=== PATIENT | female | born 1940 | race Caucasian/White ===

== ENCOUNTER 2017-04-22 04:46 | Emergency (ER) | payer MEDICARE, OTHER ==
[2017-04-22] VITALS (7 sets, daily range): BP systolic 105–133; BP diastolic 61–87; PULSE 110–121; RESP 22–28; O2SAT 92–97
[~2017-04-22] VITALS: Ht 160 cm; Wt 75.0 kg
[~2017-04-22 04:46] MED LIST: ACET-2404 PO; ADV100INH IH; ATRINH INH; CHOL200047 PO; CLOB15CR2 TP; CYAN500 PO; DESV50TA PO; ESTR0.5T PO; FLUC150T48 PO; FOLI1TAB18 PO; IPRA42SP NS; LEVO750T9 PO; LEVO75TA4 PO; MAG770OR3 PO; MULT-895 PO; NAM10 PO; OMEP-113 PO; PRE10 PO; ZLP5T PO
[2017-04-22] MEDS ORDERED: Albuterol-Ipratropium 3 mL Inhalation Solution ONE (05:10)
[2017-04-22 05:21] LABS: BASOPHILS % (AUTO) 0.2 % (0-3); EOSINOPHILS % (AUTO) 2.2 % (0-5); MONOCYTES % (AUTO) 12.8 % (4-12); Mean Corpuscular Hemoglobin 28.9 pg (27.0-35.0); Mean Corpuscular Volume 90.2 fL (81-100); NEUTROPHILS % (AUTO) 75.5 % (40-74); Platelet Count 190 bil/L (150-400)
[2017-04-22 05:32] LABS: TROPONIN T 0.01 ug/L (0.0-0.011)
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
[2017-04-22] MEDS ORDERED: MethylprednisoLONE Sodium Succinate 62.5 mg/mL 2 mL Inj IVPUSH ONE (06:20)
[2017-04-22] MEDS ORDERED: levoFLOXacin Inj 750 MG in IV Premix 1 EACH IV ONE (06:20)
[2017-04-22] MEDS ORDERED: PRE10 PO (07:39)
[2017-04-22] MEDS ORDERED: ACET-171 PO (07:39)
[2017-04-22] MEDS ORDERED: MAGN400T39 PO (07:43)
[2017-04-22] MEDS ORDERED: ESTR10TA VG (07:43)
[2017-04-22] MEDS ORDERED: GLUC100016 PO (07:46)
[2017-04-22] MEDS ORDERED: CARB1DRO18 OP (07:46)
[2017-04-22] MEDS ORDERED: BENZ200C44 PO (07:49)
[2017-04-22] MEDS ORDERED: GING550C3 PO (07:49)
[2017-04-22] MEDS ORDERED: PRE20 PO ×2 (07:51→09:27)
[2017-04-22] MEDS ORDERED: LEVO750T39 PO (07:51)
[2017-04-22] MEDS ORDERED: ZLP5T PO (08:23)
[2017-04-22 08:30] LABS: APPEARANCE,URINE SLIGHTLY CLOUDY (CLEAR,HAZY); COLOR,URINE STRAW (YELLOW); OCCULT BLOOD,URINE SMALL (NEGATIVE); PH,URINE 8.5 (5.0-8.0); UROBILINOGEN,URINE NORMAL (NORMAL)
--- NOTE | 2017-04-22 08:43 | DRSVH ---
PROCEDURE: X-RAY CHEST ONE VIEW, PORTABLE ([id number]) INDICATIONS: SHORT OF BREATH TECHNIQUE: One view of the chest was acquired. COMPARISON: [facility], CR, XR CHEST 2VW, 11/27/2016, 14:24. [facility], C R, CHEST 2VW, 02/08/2015, 15:44. FINDINGS: Surgical changes and devices: None. Lungs and pleura: Subtle/patchy areas of minimal air space disease are seen within the right lung and potentially within the left infrahilar region. No lobar consolidation, effusion, or pneumothorax is evident. Mediastinum: Mediastinal contours appear normal. Heart size is normal. There is aortic atheroscler osis. Bones and chest wall: No suspicious bony lesions. Age-appropriate degenerative changes of the image d spine are present. Overlying soft tissues appear unremarkable. IMPRESSION: Subtle developing airspace disease within the right lung and potentially the left lung is suspicious for pneumonia. However, focal areas of atelectasis or unusual presentation for pulmonary edema may also have this appearance. Please correlate clinically. Dictated by: Heriberto Fuller M.D. on 04/22/2017 at 8:40 Approved by: Heriberto Fuller M.D. on 04/22/2017 at 8:42
[2017-04-23] MEDS ORDERED: MULT-1065 PO (15:39)
[2017-04-23] MEDS ORDERED: IPRA15SP NS (15:41)
[2017-04-23] MEDS ORDERED: SYMINH INHALATION (15:46)
[2017-04-23] MEDS ORDERED: NYST1000 PO (15:46)
== END 2017-04-22 09:33 | disposition home or self-care (01) ==
LOC: SED 04:46
DX: J44.0 Chronic obstructive pulmonary disease with (acute) lower respiratory infection (principal); E03.9 Hypothyroidism, unspecified; Z87.891 Personal history of nicotine dependence; Z79.899 Other long term (current) drug therapy; Z90.710 Acquired absence of both cervix and uterus; Z91.041 Radiographic dye allergy status; Z88.1 Allergy status to other antibiotic agents; Z88.8 Allergy status to other drugs, medicaments and biological substances
CPT/HCPCS: 71010; 80053; 81000; 83605; 83880; 84484; 85025; 87040; 93005; 94664; 96365; 96366; 96375; 99285; J1956; J2930; J7620

== ENCOUNTER 2017-04-23 12:10 | Inpatient (IN) | payer MEDICARE, OTHER ==
[~2017-04-23] VITALS: Ht 160 cm; Wt 77.1 kg
[2017-04-23] VITALS (9 sets, daily range): BP systolic 125–156; BP diastolic 64–82; PULSE 101–143; RESP 20–39; O2SAT 91–97
[~2017-04-23 12:10] MED LIST changes: +ACET-171 PO; -ACET-2404 PO; -ADV100INH IH; +BENZ200C44 PO; +CARB1DRO18 OP; +Doxycycline Inj 100 MG in Dextrose 5% Minibag Plus 100 ML IV SCH; +ESTR10TA VG; -FLUC150T48 PO; +GING550C3 PO; +GLUC100016 PO; +LEVO750T39 PO; -LEVO750T9 PO; -MAG770OR3 PO; +MAGN400T39 PO; -OMEP-113 PO; +PRE20 PO
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
[2017-04-23] MEDS ORDERED: MethylprednisoLONE Sodium Succinate 62.5 mg/mL 2 mL Inj IVPUSH ONE (12:45)
[2017-04-23] MEDS ORDERED: Albuterol-Ipratropium 3 mL Inhalation Solution NEB ONE (12:45)
[2017-04-23] MEDS ORDERED: Pantoprazole 4 mg/mL 10 mL Inj IVPUSH ONE (12:45)
[2017-04-23 12:54] LABS: BASOPHILS % (AUTO) 0.1 % (0-3); EOSINOPHILS % (AUTO) 0 % (0-5); MONOCYTES % (AUTO) 11.9 % (4-12); Mean Corpuscular Hemoglobin 29.1 pg (27.0-35.0); Mean Corpuscular Volume 88.6 fL (81-100); NEUTROPHILS % (AUTO) 84.7 % (40-74); Platelet Count 209 bil/L (150-400)
[2017-04-23 13:06] LABS: TROPONIN T < 0.010 ug/L (0.0-0.011)
--- NOTE | 2017-04-23 13:19 | DRSVH ---
PROCEDURE: X-RAY CHEST ONE VIEW, PORTABLE ([id number]) INDICATIONS: 76 year-old female with worsening shortness of breath and emphysema. TECHNIQUE: One view of the chest was acquired. COMPARISON: [facility], CR, XR CHEST 1VW (PORTABLE), 04/22/2017, 5:19. [facility], CR, XR CHEST 2VW, 11/27/2016, 14:24. Outside Film, CR, XR CHEST 2V AP/PA AND LAT, 05/22/2016, 13:18. FINDINGS: Surgical changes and devices: None. Lungs and pleura: No pleural effusions or pneumothorax. Lungs are clear, except for subtle air spac e opacity just superior to the right minor fissure. Mediastinum: Mediastinal contours appear normal. Heart size is normal. There is aortic atheroscler osis. Bones and chest wall: No suspicious bony lesions. Overlying soft tissues appear unremarkable. IMPRESSION: Findings suspicious for early right upper lobe pneumonia. Dictated by: Roberto Lipscomb M.D. on 04/23/2017 at 12:16 Approved by: Roberto Lipscomb M.D. on 04/23/2017 at 12:18
[2017-04-23] MEDS ORDERED: Piperacillin-Tazo 3.375 Gm Inj 3.375 GM in Dextrose 5% Minibag Plus 50 ML IV ONE (13:40)
[2017-04-23] MEDS ORDERED: Albuterol 0.5% (5mg/mL) 20 mL Inhalation Solution NEB ONE (13:40)
[2017-04-23] MEDS ORDERED: Vancomycin Dose per Pharmacist XX SCH (13:40)
[2017-04-23] MEDS ORDERED: Vancomycin Inj 1,500 MG in 0.9% Sodium Chloride 500 ML IV ONE (13:50)
[2017-04-23] MEDS ORDERED: LidocaineVisc 2%:Antacid 1:1 10 mL Syringe PO ONE (14:40)
[2017-04-23 14:45] LABS: Magnesium 1.9 mg/dL (1.6-2.6); Phosphorus 3.4 mg/dL (2.5-4.9)
--- NOTE | 2017-04-23 15:17 | PCM.HPMED ---
Subjective Date of Service Apr 23, 2017 Primary Provider: Admitting Physician: Devin Villanueva MD Primary Care Physician: Prasad Catherine MD Attending Physician: Devin Villanueva MD Admit Status: From the Emergency Department Chief Complaint: Shortness of breath History of Present Illness: This is a 76-year-old female with past medical history significant for COPD on continuous 1.5 L of oxygen per day who presents with shortness of breath. The patient states that she was in her normal state of health until 2 weeks ago when she developed a upper respiratory tract infection. The upper respiratory tract infection included productive cough with increased sputum production that is yellow, nasal congestion, and sore throat. The symptoms have been progressively worsening. Over the last 48 hours she developed worsening shortness of breath that has required an increase in her home oxygen use. She also admits to chest pressure that is nonradiating and present at rest. She also developed fevers and chills with a tmax of 100.4f measured at home orally. She has no reported sick contacts. She also states that she has had worsening pain over the last several days at a costovertebral angles (left > right) that is accompanied by decreased urinary frequency. The patient states that she has decreased appetite and decreased fluid intake as well. The patient denies any diaphoresis, nausea, vomiting, dysuria, hematuria, diarrhea. In the ER on 04/22/2017 she was provided with a dose of Levaquin and methylprednisolone. In the emergency department initial vital signs were temperature 37.0, pulse 143 , respiratory rate 39, blood pressure 156/78, satting at 91% on 4 L by nasal cannula. She later required high flow oxygen. Initial laboratory results included WBC 20.2 with left shift, hemoglobin 15.3, hematocrit 46.5, platelets 209. BUN 16, creatinine 0.79, glucose 126. Troponin less than 0.010. Chest x- ray showed findings suspicious for early right upper lobe pneumonia. EKG showed sinus tachycardia with rate of 125. Qtc was prolonged at 569. Blood cultures are pending. In the emergency department patient was given duo nebs, methylprednisolone 125 mg once, and vancomycin. Review of Systems: A comprehensive review of systems was conducted with the patient and found to be negative except as above in the History of Present Illness. Allergies Coded Allergies: Iodinated Contrast- Oral and IV Dye (Verified Allergy, Severe, severe upper body rash, 10/27/14) amoxicillin (Verified Adverse Reaction, Unknown, 10/27/14) cephalexin (Verified Adverse Reaction, Unknown, 10/27/14) clavulanic acid (Verified Adverse Reaction, Unknown, 10/27/14) naproxen (Verified Adverse Reaction, Unknown, "zoned me out", 06/03/14) Home Medications acetaminophen ER 650 mg tablet,extended release take 2 tablet by oral route every 8 hours as needed swallowing whole with water. Do not break, crush, dissolve and/or chew. Atrovent HFA 17 mcg/actuation aerosol inhaler inhale 2 puff by inhalation route 1 to 2 times every day BENZONATATE CAPS 200MG TAKE 1 CAPSULE THREE TIMES A DAY NEEDED Centrum Silver Ultra Women's tablet clobetasol 0.05 % topical cream apply by topical route 2 times every day a thin layer to the affected area(s) desvenlafaxine ER 50 mg tablet,extended release 24 hour take 1 tablet by oral route every day at approximately the same time each day DIFLUCAN 150MG TABLET TAKE 1 TABLET BY MOUTH ONE TIME DOSE - MAY REPEAT INSTRUCTED estradiol 0.5 mg tablet take 1 tablet by oral route every day folic acid 1 mg tablet take 1 tablet by oral route every day Destini Extract Takes 2 550mg capsules daily with honey & vinegar glucosamine sulfate 1,000 mg capsule 1 tab Po daily ipratropium bromide 0.06 % nasal spray spray 2 spray by intranasal route 3 times every day in each nostril levothyroxine 75 mcg tablet take 1 tablet by oral route every day for thyroid. magnesium oxide 400 mg tablet Namenda 10 mg tablet take 1 tablet by oral route every day for memory nystatin 100,000 unit/mL oral suspension take 5 milliliter by oral route 4 times every day Oxygen - Refresh Optive Advanced 0.5 %-1 %-0.5 % eye drops Use as needed for dryness, irritation Symbicort 160 mcg-4.5 mcg/actuation HFA aerosol inhaler inhale 1 puff by INHALATION route 2 times every day morning and evening trospium ER 60 mg capsule,extended release 24 hr take 1 capsule by oral route every day on an empty stomach 1 hour before meal(s) Vagifem 10 mcg vaginal tablet INSERT 1 TABLET BY VAGINAL ROUTE EVERY WEEK Vitamin B-12 1,000 mcg tablet Vitamin D3 2,000 unit capsule zolpidem 5 mg tablet take 1 (5MG) by oral route every day at bedtime PMH COPD on continuous 1.5 L oxygen at home Mild dementia Urinary incontinence History of UTIs GERD Depression/anxiety Hypothyroidism Surgical History Total hysterectomy Cataract extraction Carpal tunnel release Family History Mother of emphysema. Father of stomach cancer. Brother of lung cancer. Sister had coronary artery disease. Social History Hx Alcohol Use: Yes (on occas) Hx Substance Use: No Hx Tobacco Use: No Smoking Status: Former Smoker (quit in 2000.) Exam Vital Signs Vital Sign - Last Date Time Temp Pulse Resp B/P Pulse Ox O2 Delivery O2 Flow Rate FiO2 04/23/17 14:11 140 31 125/64 97 BiPAP 04/23/17 13:08 4 04/23/17 12:23 37.0 Exam General: Patient laying in hospital bed, difficulty speaking due to shortness of breath, appropriately interactive HEENT: Normocephalic, atraumatic. External ears without defect. Pupils equal, round, and reactive to light and accommodation. Anicteric sclerae, moist conjunctivae, and no lid lag. Oropharynx free of erythema and cobble stoning with moist mucosa. Neck: Supple with full range of motion. No jugular venous distension. No bruits. No lymphadenopathy or thyromegaly. Cardiovascular: Regular rate and rhythm with no murmurs, rubs, or gallops appreciated Pulmonary: Wheezing and rhonchi. Tachypneic. Abdomen: Bowel tones present. Soft, nontender, nondistended. No hepatosplenomegaly or masses appreciated. Extremities: No clubbing, cyanosis, edema, or lymphadenopathy appreciated. Skin: Normal temperature, turgor, and texture; no rash, ulcers, or subcutaneous nodules appreciated. Neurological: Cranial nerves grossly intact. Normal muscle strength, tone, and bulk. Reflexes, coordination, and sensory function within normal limits. No known gait impairment. Psychiatric: Normal mood and affect. Alert and oriented to person, place, and time. Lab and Diagnostics Result Diagram: 04/23/17 1230 04/23/17 1230 X-Rays, CTs and MRIs Chest x-ray 04/23/2017: IMPRESSION: Findings suspicious for early right upper lobe pneumonia. Dictated by: Roberto Lipscomb M.D. on 04/23/2017 at 12:16 Assessment & Plan This is a 76-year-old female with past medical history significant for COPD on continuous oxygen 1.5L at home who presents with shortness of breath. This is likely a COPD exacerbation and possibly community-acquired pneumonia. The differential includes myocardial infarction, pulmonary embolism, heart failure. COPD exacerbation, present on admission, ongoing: -ABG: pH 7.461, PCO2 35.7, pO2 66.9, HCO3 25.4. -Patient received methylprednisolone 125 mg in the ED. -Continue Methylprednisolone 60mg q8h. -She received duo nebs with some improvement. Will continue duonebs q4h. -She is currently on high flow oxygen and states she is improving. Community acquired pneumonia, present on admission, ongoing: -Patient has increased cough, has been febrile, with chest x-ray showing findings suspicious of early right upper lobe pneumonia. -Due to severity of exacerbation will continue antibiotics: Doxycycline. -Viral pcr pending, legionella urine ag, strep pneumo ag, blood cultures, sputum culture pending. -Lactic acid 2. Prolonged qtc, present on admission, ongoing: -Qtc on admission 569. -Hold qtc prolonging meds. Chest pressure, present on admission, ongoing: -Trend troponin. -Patient on telemetry. Hypothyroidism, present on admission, ongoing: -TSH, ft4 pending. -Continue home meds. Depression/anxiety -Continue home meds. Patient is admitted under inpatient status with expected length of stay greater than 2 midnights due to severity of presenting symptoms, risk of adverse event, and complexity of treatment plan. Attending Statement Please note that the patient has chronic respiratory failure, as evidenced by notation of chronic 1.5 L oxygen use at home. The patient was seen and examined together with Dr. Real on 04/23/2017 and I agree with the history, exam and plan as outlined in the note above. . Enrique Real DO Apr 23, 2017 15:17 Devin Villanueva MD Apr 24, 2017 07:03
[2017-04-23] MEDS ORDERED: Polyethylene Glycol (PEG) 17 Gm Powder PO PRN (15:35)
[2017-04-23] MEDS ORDERED: Alum-Mag Hydrox-Simeth 30 mL Suspension PO PRN (15:35)
--- NOTE | 2017-04-23 15:37 | ABG ---
DateTimeAnalyzed 15:24:01 -_ pH ____7.461 - 7.350 7.450 pCO2 ___35.7__ -mmHg 35.0 45.0 pO2 ___66.9__ -mmHg 70.0 100 HCO3- ___25.4__ -mmol/L 22.0 26.0 ABE ____1.6__ -mmol/L -2.0 2.0 tHb ___13.6__ -g/dL 12.0 18.0 O2Hb ___93.8__ -% 95.0 COHb ____1.1__ -% 1.5 MetHb ____0.1__ -% 0.4 1.5 sO2 ___94.9__ -% FIO2 ___21.0__ -% Drawn By RC - Date/Time Notified____ 15:37:00 -_ Spontaneous_RR 25 -b/min Liter_Flow ___25.00_ -L/min Oxygen Device 1 ____HHFNC - Notified By RC - Notified Whom ___COONEY - K+ ____4.0__ -mmol/L tO2 ___17.9__ -Vol% Prasad test _Positive -
[2017-04-23] MEDS ORDERED: MULT-1065 PO (15:39)
[2017-04-23] MEDS ORDERED: IPRA15SP NS (15:41)
[2017-04-23] MEDS ORDERED: SYMINH INHALATION (15:46)
[2017-04-23] MEDS ORDERED: NYST1000 PO (15:46)
--- NOTE | 2017-04-23 16:24 | NUR ---
1610 - PT. transported from ED to room 2004 without incident. transported on NC and placed back on [facility] 30lpm/30%.
[2017-04-23] MEDS ORDERED: MethylprednisoLONE Sodium Succinate 40 mg/mL Inj IVPUSH SCH (16:30)
[2017-04-23] MEDS ORDERED: Doxycycline 100 mg/100 mL D5W IV ONE ×2 (16:55)
[2017-04-23] MEDS ORDERED: levoFLOXacin Inj 750 MG in IV Premix 1 EACH IV SCH (17:00)
[2017-04-23] MEDS: Albuterol-Ipratropium 3 mL Inhalation Solution NEB SCH ×2 (17:40→20:49)
[2017-04-23] MEDS ORDERED: Vancomycin Dose per Pharmacist XX ONE (17:49)
[2017-04-23] MEDS: 0.9% Sodium Chloride 1,000 ML IV SCH (17:53)
[2017-04-23 18:16] LABS: APPEARANCE,URINE CLEAR (CLEAR,HAZY); COLOR,URINE STRAW (YELLOW); OCCULT BLOOD,URINE SMALL (NEGATIVE); UROBILINOGEN,URINE NORMAL (NORMAL)
--- NOTE | 2017-04-23 19:31 | NUR ---
Admit.. Pt received from ER via gurney.. arrived in resp distress with work of breathing and tachypnea. Had coarse audible breathing with tight wheezes. Pt placed on high flow O2 and with coaching per RT was able to calm her self down and stabalize. Placed on continuous oximetry. Family here and updated on status and plan of care. Pt is wanting DNR/DNI status and order obtained. Addendum: 04/23/17 at 1935 by PETR LIMA RN Jerry.. due to pt's work of breathing on arrival she requested a jerry. updated and order obtained.. 16 fr jerry placed without difficulty and is draining clear yellow urine.
[2017-04-23] MEDS: Ipratropium HFA 200 Puff 12.9 Gm Inhaler INHALATION SCH (20:08)
[2017-04-23] MEDS: Fluticasone-Salmererol 250-50 Inhaler INHALATION SCH (20:08)
[2017-04-23] MEDS: MethylprednisoLONE Sodium Succinate 40 mg/mL Inj IVPUSH SCH (20:08)
[2017-04-24] VITALS (14 sets, daily range): BP systolic 100–120; BP diastolic 58–67; PULSE 85–108; RESP 20–26; O2SAT 95–98
[2017-04-24] MEDS: Albuterol-Ipratropium 3 mL Inhalation Solution NEB SCH ×4 (00:17→12:18)
[2017-04-24] MEDS: MethylprednisoLONE Sodium Succinate 40 mg/mL Inj IVPUSH SCH (00:23)
[2017-04-24] MEDS: Doxycycline Inj 100 MG in Dextrose 5% Minibag Plus 100 ML IV SCH ×3 (00:23→22:00)
[2017-04-24 02:39] LABS: BASOPHILS % (AUTO) 0.1 % (0-3); EOSINOPHILS % (AUTO) 0 % (0-5); MONOCYTES % (AUTO) 2.5 % (4-12); Mean Corpuscular Volume 89.3 fL (81-100); NEUTROPHILS % (AUTO) 94.7 % (40-74); Platelet Count 175 bil/L (150-400)
[2017-04-24] MEDS: 0.9% Sodium Chloride 1,000 ML IV SCH ×4 (05:22→21:31)
--- NOTE | 2017-04-24 07:04 | NUR ---
Respiratory Pt remains on High-Flow NC 30 L and 25% FIO2. SPO2 mid-high 90s. RT titrated down O2 from 30 L to 25 L, Pt did not tolerated well. O2 back to 30L. No further c/o noted. No overt complications noted.
[2017-04-24] MEDS: DESVENLAFAXINE SUCCINATE 50 MG PO SCH (08:30)
--- NOTE | 2017-04-24 09:14 | NUR ---
Social Work: Initial Assessment D: Per EMR review, pt is a 76 year old female admitted for pneumonia WBC 28, COPD. Pt is Medicare with [facility] [place] Supplement; pt has no LTC insurance or VA benefits. PCP is Prasad Catherine MD. NOK is Jonellepilar Stubbselida, . Advance directives completed and on file. No RA score entered at this time. CARDIOGRAPHER met with pt at bedside. Sw role explained and contact info provided. See initial assessment. Pt lives at [facility]. Pt uses an electric scooter for ambulation. Pt is I with ADLs but relies on staff for showers. Pt uses 02 continuously which is supplied through [facility]. Pt has never had HH or skilled rehab however her preference is for [facility] if needed. Pt relies on [facility] for transportation. Pt provided verbal consent for CARDIOGRAPHER to contact [facility] to coordinate discharge planning if needed. t/c to [facility]; no answer. CARDIOGRAPHER left message requesting return phone call to inquire about need for possible bedside assessment. A: Pt who is I at baseline except showers and transportation. P: Evolving; CARDIOGRAPHER to continue to follow pt's clinical course and assist with discharge planning as ordered by . BRYANT Barksdale Addendum: 04/24/17 at 0922 by BETSY CAMARA SS Amended: Links added.
[2017-04-24] MEDS: Fluticasone-Salmererol 250-50 Inhaler INHALATION SCH ×2 (09:26→19:38)
[2017-04-24] MEDS: Ipratropium HFA 200 Puff 12.9 Gm Inhaler INHALATION SCH ×3 (09:30→19:38)
--- NOTE | 2017-04-24 10:10 | ABG ---
DateTimeAnalyzed 09:50:59 -_ pH ____7.416 - 7.350 7.450 pCO2 ___38.3__ -mmHg 35.0 45.0 pO2 ___72.2__ -mmHg 69.0 116 HCO3- ___24.6__ -mmol/L 22.0 26.0 ABE ____0.1__ -mmol/L tHb ___13.1__ -g/dL O2Hb ___94.1__ -% COHb ____1.0__ -% 1.5 MetHb ____0.0__ -% sO2 ___95.1__ -% FIO2 ___21.0__ -% Drawn By btl - Date/Time Notified____ 10:09:00 -_ Notified By btl - Notified Whom ___Dr. Vickers - K+ ____3.5__ -mmol/L tO2 ___17.3__ -Vol% Prasad test _Positive -
--- NOTE | 2017-04-24 10:23 | NUR ---
Respiratory Trial off HFNC, Pt on 2 LNC. Sat 98%, Hr 101, RR 20, Bs End expiratory wheeze, scattered rhonchi. Pt maintains well, Pt anxiety is main issue to wean from HFNC.
[2017-04-24] MEDS: predniSONE 20 mg Tablet PO SCH (11:28)
--- NOTE | 2017-04-24 12:25 | NUR ---
Respiratory Pt HFNC still on S/B. 2 LNC tolerating well, sat 97% Hr 100, RR 20, BS EEW. Pt anxiety, poor prior pcp care and confusion about reality of Dx, Rx and Tx prevents Pt from understanding what is going on.
[2017-04-24] MEDS ORDERED: Levalbuterol 1.25 mg/0.5mL Inhalation Solution NEB ONE (14:50)
[2017-04-24] MEDS ORDERED: Levalbuterol 0.63 mg/3 mL Inhalation Solution NEB SCH (16:00)
--- NOTE | 2017-04-24 16:10 | PCM.PNMED ---
Subjective Date of Service Apr 24, 2017 Subjective Pt improving over the night and this morning. Off high flow and resting comfortably at 2L NC which is not significantly elevated form baseline. Pt has underlying anxiety and also complains the albuterol is making her shaky. She denies ongoing cough/sputum, fever, CP, dizziness, etc. All other ROS negative. Exam Vital Signs Vital Sign - Last Date Time Temp Pulse Resp B/P Pulse Ox O2 Delivery O2 Flow Rate FiO2 04/24/17 15:48 107 24 98 04/24/17 15:46 Nasal Cannula 1.00 04/24/17 15:38 36.6 113/66 04/24/17 08:30 21 Intake and Output 04/23/17 04/23/17 04/24/17 Cumulative From/Thru 15:00 23:00 07:00 04/23/17 12:23 - 04/24/17 06:42 Intake Total 0 ml 1252 ml 1252 ml Output Total 400 ml 850 ml 1250 ml Balance -400 ml 402 ml 2 ml Intake Oral 0 ml 200 ml 200 ml IV Total 1052 ml 1052 ml Output Urine Total 400 ml 850 ml 1250 ml # Bowel Movements 0 0 Exam General: lying in bed anxious but conversive Cardiovascular: Regular rate and rhythm with no murmurs, rubs, or gallops appreciated Pulmonary: CTA, mildly tachypneic, wheezes diffuse Abdomen: Bowel tones present. Soft, nontender, nondistended Extremities: No clubbing, cyanosis, edema, or lymphadenopathy appreciated. Psychiatric: Alert and oriented; anxious IVs and Medications Medications Reviewed: Medications were reviewed in detail Lab and Diagnostics Result Diagram: 04/24/17 0220 04/24/17 0220 X-Rays, CTs and MRIs Chest x-ray 04/23/2017: IMPRESSION: Findings suspicious for early right upper lobe pneumonia. Dictated by: Roberto Lipscomb M.D. on 04/23/2017 at 12:16 Assessment & Plan This is a 76-year-old female with past medical history significant for COPD on continuous oxygen 1.5L at home who presents with shortness of breath. This is likely a COPD exacerbation and possibly community-acquired pneumonia. The differential includes myocardial infarction, pulmonary embolism, heart failure. Acute hypoxic respiratory failure, multifactoral; present on admission; resolving -Pt presented with hypoxia and required high flow O2; pt on 2L NC at home ( baseline) -Continue O2 for hypoxia -Treat underlying pneumonia COPD exacerbation second to parainfluenza and pneumonia, present on admission, ongoing: -ABG: pH 7.461, PCO2 35.7, pO2 66.9, HCO3 25.4.; pt positive for parainfl. by pcr -Patient received methylprednisolone 125 mg in the ED. -Steroids changed to Prednisone 40mg PO daily -Changed duonebs to levalbuterol Q4WA -Off high flow, now on 2L NC Community acquired pneumonia, present on admission, ongoing: -Patient has increased cough, has been febrile, with chest x-ray showing findings suspicious of early right upper lobe pneumonia. -Continue Doxycycline for the time being -Negative procal; repeat tomorrow -Strep ag negative; no legionella; positive parainfluenza Prolonged qtc, present on admission, ongoing: -Qtc on admission 569. -Hold qtc prolonging meds. -Avoid levaquin Chest pressure, present on admission, ongoing: -Trend troponin. -Patient on telemetry. Hypothyroidism, present on admission, ongoing: -TSH 0.799 ft4 1.67 WNL -Continue home meds. Depression/anxiety -Continue home meds. Dispo: Pt likely to discharge in 1-2 days pending response to steroids and improvement in hypoxia Attending Statement The patient was seen and examined together with Dr. Vickers on 04/24/17 and I have added additional information to the note above. Heron Vickers DO Apr 24, 2017 16:10 Ana Walters DO Apr 25, 2017 11:59
--- NOTE | 2017-04-24 16:49 | NUR ---
Oxygen/isolation Patient was gradually transitioned from HFO2 NC to 1L per NC O2 with oxygen saturation remaining 94-97% while at rest. Earlier obtained ABG: PH-7.416, PCO2-38.6, PO2-72.2 and HCO2-24.6- MD was made aware- no new orders were received at the time. Nasal swab positive for Parainfluenza3- MD aware- patient was placed on droplet isolation- patient/family education was provided and verbalized understanding.
[2017-04-24] MEDS: guaiFENesin 600 mg ER12 Tablet PO SCH (19:39)
[2017-04-25] VITALS (10 sets, daily range): BP systolic 102–157; BP diastolic 61–83; PULSE 85–115; RESP 18–26; O2SAT 89–97
[2017-04-25] MEDS: 0.9% Sodium Chloride 1,000 ML IV SCH ×2 (04:36→17:23)
--- NOTE | 2017-04-25 07:30 | NUR ---
O2/Anxiety Pt woke up stated she was having a panic attack. Stated she felt like she could not breathe. Pt on 1 L NC SPO2 87%. Pt encouraged to focus on breathing. SPO2 95%. MD notified this RN to turn pt O2 off, leaving NC in, pt SPO2 96% RA at rest. Pt parameters for O2 per MD 88-92%. Care continues.
[2017-04-25] MEDS: Ipratropium HFA 200 Puff 12.9 Gm Inhaler INHALATION SCH ×3 (09:26→19:35)
[2017-04-25] MEDS: Fluticasone-Salmererol 250-50 Inhaler INHALATION SCH ×2 (09:26→19:35)
[2017-04-25] MEDS: predniSONE 20 mg Tablet PO SCH (09:48)
[2017-04-25] MEDS: guaiFENesin 600 mg ER12 Tablet PO SCH ×2 (09:49→19:35)
[2017-04-25] MEDS: Levalbuterol 0.63 mg/3 mL Inhalation Solution NEB PRN ×2 (10:00→17:00)
[2017-04-25] MEDS: Doxycycline Inj 100 MG in Dextrose 5% Minibag Plus 100 ML IV SCH ×2 (10:00→21:33)
--- NOTE | 2017-04-25 11:31 | NUR ---
O2 Per MD pt desatted to 87% ordered 1 L NC to be placed. Pt SPO2 88%. Care continues.
[2017-04-25] MEDS: Ipratropium 0.03% 30 mL Nasal Spray Bottle NASAL SCH ×2 (14:55→21:08)
--- NOTE | 2017-04-25 15:07 | PCM.PNMED ---
Subjective Date of Service Apr 25, 2017 Subjective This is a 76 year old female with COPD on 1.5 liters of oxygen semi continuously at home who presented in respiratory distress requiring high flow oxygen and subsequently found + for parainfluenza virus. After further discussion with the patient it was found that the patient monitors her O2 at home and will turn the oxygen on or off based on her O2 saturation levels. She has been off high flow oxygen for > 24h. She continues to complain of cough and difficulty bringing up mucous. This morning they turned off her oxygen by NV and she was satting at 97%. Patient states she was very anxious overnight. She is on Pristiq at home. Her niece is planning to bring this medication today. She states that the levalbuterol has helped with her breathing. Otherwise review of system negative. Exam Vital Signs Vital Sign - Last Date Time Temp Pulse Resp B/P Pulse Ox O2 Delivery O2 Flow Rate FiO2 04/25/17 12:00 36.2 98 18 138/78 96 Nasal Cannula 1.00 04/24/17 08:30 21 Intake and Output 04/24/17 04/24/17 04/25/17 Cumulative From/Thru 15:00 23:00 07:00 04/23/17 12:23 - 04/25/17 06:39 Intake Total 1890 ml 1368 ml 4510 ml Output Total 650 ml 300 ml 2200 ml Balance 1240 ml 1068 ml 2310 ml Intake Oral 740 ml 220 ml 1160 ml IV Total 1150 ml 1148 ml 3350 ml Output Urine Total 650 ml 300 ml 2200 ml # Bowel Movements 0 Exam General: lying in bed anxious but answering questions appropriately. Cardiovascular: Regular rate and rhythm with no murmurs, rubs, or gallops appreciated Pulmonary: CTA, mildly tachypneic, wheezes diffuse Abdomen: Bowel tones present. Soft, nontender, nondistended Extremities: No clubbing, cyanosis, edema, or lymphadenopathy appreciated. Psychiatric: Alert and oriented; anxious IVs and Medications Medications Reviewed: Medications were reviewed in detail Lab and Diagnostics Result Diagram: 04/24/1721904/24/17 022 X-Rays, CTs and MRIs Chest x-ray 04/23/2017: IMPRESSION: Findings suspicious for early right upper lobe pneumonia. Dictated by: Roberto Lipscomb M.D. on 04/23/2017 at 12:16 Assessment & Plan This is a 76-year-old female with past medical history significant for COPD sometimes on oxygen 1.5L at home who was admitted with COPD exacerbation and possible community acquired pneumonia. Acute hypoxic respiratory failure, multifactoral; present on admission; resolving -Pt presented with hypoxia and required high flow O2; pt on 1.5 L NC at home ( baseline). No longer requiring oxygen. -Continue O2 for hypoxia. -Treat underlying pneumonia COPD exacerbation second to parainfluenza and pneumonia, present on admission, ongoing: -Patient positive for parainfluenza. -Patient received methylprednisolone 125 mg in the ED. -Prednisone 40mg PO daily -Continue Mucinex, Advair, Ipratropium, levalbuterol. -Off high flow, now on 2L NC. During part of the day oxygen was turned off and she was satting well. Community acquired pneumonia, present on admission, ongoing: -On admit patient had cough, had been febrile, with chest x-ray showing findings suspicious of early right upper lobe pneumonia. -Will continue Doxycycline due to severity of copd exacerbation. -Negative procal; repeat tomorrow -Strep ag negative; positive parainfluenza Prolonged qtc, present on admission, ongoing: -Qtc on admission 569. -Hold qtc prolonging meds. -Avoid levaquin Chest pressure, present on admission, ongoing: -Trend troponin. -Patient on telemetry. Hypothyroidism, present on admission, ongoing: -TSH 0.799 ft4 1.67 WNL -Continue home meds. Depression/anxiety -Continue home meds. DVT prophylaxis with enoxaparin. Dispo: Pt likely to discharge in 1-2 days pending response to steroids and improvement in hypoxia Pain Evaluation: Adequate Pain Control Resuscitation Status: DNR/DNI:Do Not Resuscitate/Intubate Attending Statement The patient was seen and examined together with Dr. Real on 04/25/17 and I have added additional information to the note above. Enrique Real DO Apr 25, 2017 15:07 Ana Walters DO Apr 26, 2017 11:51
--- NOTE | 2017-04-25 15:11 | NUR ---
Anxiety Pt anxious about not getting enough nutrition. Pt states she is not hungry. Pt wanting to speak with MD. Notes on board for pt to remember to ask MD. MD notified. Pt waiting for niece to bring in home medications for hormones and depression per pt. Care continues.
--- NOTE | 2017-04-25 15:53 | NUR ---
Evaluation completed. Please go to "Notes" then click on "Assessments and Notes" (bottom left corner of screen). Then select appropriate discipline tab on top of screen.
--- NOTE | 2017-04-25 17:43 | NUR ---
Home Medications Just took her two home medications (Desvenlafaxine Succinate and Estradiol Vagifem) down to the pharmacy to be inspected and labeled for inpatient use. She witnessed this nurse putting her medications into a sealed security bag for transport. Per pt, she said that the Desvenlafaxine Succinate bottle may be , but the medication inside is good because she takes the new prescription and dumps it into the old bottle. Notified the Pharmacy of this. Notified the Julieta Vasquez RN (Primary Nurse). Care continues.
[2017-04-25] MEDS: DESVENLAFAXINE SUCCINATE 50 MG PO SCH (18:30)
[2017-04-25] MEDS ORDERED: LORazepam 0.5 mg Tablet PO ONE (21:35)
[2017-04-26] VITALS (14 sets, daily range): BP systolic 111–161; BP diastolic 69–89; PULSE 73–114; RESP 18–26; O2SAT 92–95
[2017-04-26] MEDS: Levalbuterol 0.63 mg/3 mL Inhalation Solution NEB PRN ×4 (00:54→20:53)
[2017-04-26 03:08] LABS: BASOPHILS % (AUTO) 0.1 % (0-3); EOSINOPHILS % (AUTO) 0 % (0-5); Mean Corpuscular Hemoglobin 28.4 pg (27.0-35.0); Mean Corpuscular Volume 90.5 fL (81-100); NEUTROPHILS % (AUTO) 85.6 % (40-74); Platelet Count 199 bil/L (150-400)
--- NOTE | 2017-04-26 03:50 | NUR ---
Pain/Breathing/Oxygen Pt c/o significant back pain that is increasing to 7/10. Tylenol given and page to MD, orders received for Ibuprofen as well. Pt also very anxious about respiratory status and insomnia, MD aware, orders received for dose of ativan. Sats 95% on 1L NC, but pt desats and HR increases with persistent coughing fits. Pt is producing a small to moderate amount of mucus out as well, using pickle frequently. Oxygen later decreased to 0.5L for sats at 97%. Currently 94% while sleeping, breathing is still somewhat labored with wheezing.
[2017-04-26] MEDS: 0.9% Sodium Chloride 1,000 ML IV SCH (04:13)
[2017-04-26] MEDS: Ipratropium HFA 200 Puff 12.9 Gm Inhaler INHALATION SCH ×3 (09:04→20:05)
[2017-04-26] MEDS: Fluticasone-Salmererol 250-50 Inhaler INHALATION SCH ×2 (09:04→20:06)
[2017-04-26] MEDS: Ipratropium 0.03% 30 mL Nasal Spray Bottle NASAL SCH ×2 (09:05→20:05)
[2017-04-26] MEDS: guaiFENesin 600 mg ER12 Tablet PO SCH ×2 (09:06→20:07)
[2017-04-26] MEDS: predniSONE 20 mg Tablet PO SCH (09:07)
[2017-04-26] MEDS ORDERED: ESTRADIOL 10 MCG VAGINAL SCH (09:11)
[2017-04-26] MEDS ORDERED: [UNRECOGNIZED DRUG - OTHER] VAGINAL SCH (09:11)
--- NOTE | 2017-04-26 11:19 | PCM.PNMED ---
Subjective Date of Service Apr 26, 2017 Subjective Overnight patient remains anxious but is helped by ativan or Prestiq. Pt requested that we place an NG tube for feeding as she does not feel she is getting enough nutrition. She has yet to make it out of bed, and requesting to keep her jerry. Denies ROS. O2 is down to 1L NC which is below her outpatient baseline; she is satting in the low to mid 90's Exam Vital Signs Vital Sign - Last Date Time Temp Pulse Resp B/P Pulse Ox O2 Delivery O2 Flow Rate FiO2 04/26/17 08:45 36.6 98 20 132/81 92 Nasal Cannula 1.00 04/24/17 08:30 21 Intake and Output 04/25/17 04/25/17 04/26/17 Cumulative From/Thru 15:00 23:00 07:00 04/23/17 12:23 - 04/26/17 06:15 Intake Total 360 ml 2827 ml 7697 ml Output Total 1000 ml 900 ml 4100 ml Balance -640 ml 1927 ml 3597 ml Intake Oral 360 ml 600 ml 2120 ml IV Total 2227 ml 5577 ml Output Urine Total 1000 ml 900 ml 4100 ml # Bowel Movements 1 1 Exam General: lying in bed anxious but answering questions appropriately. Cardiovascular: Regular rate and rhythm with no murmurs, rubs, or gallops appreciated Pulmonary:Course, rhonchus breath sounds without wheezes Abdomen: Bowel tones present. Soft, nontender, nondistended Extremities: No clubbing, cyanosis, edema, or lymphadenopathy appreciated. Psychiatric: Alert and oriented; anxious IVs and Medications Medications Reviewed: Medications were reviewed in detail Lab and Diagnostics Result Diagram: 04/26/17 0254 04/26/17 0254 X-Rays, CTs and MRIs Chest x-ray 04/23/2017: IMPRESSION: Findings suspicious for early right upper lobe pneumonia. Dictated by: Roberto Lipscomb M.D. on 04/23/2017 at 12:16 Assessment & Plan This is a 76-year-old female with past medical history significant for COPD on continuous oxygen 1.5L at home who was admitted with COPD exacerbation and possible community acquired pneumonia. Acute hypoxic respiratory failure, multifactoral; present on admission; resolving -Pt presented with hypoxia and required high flow O2; pt on 1.5 L NC at home ( baseline). Minimal use of O2 while sitting but requiring O2 while moving. -Continue O2 for hypoxia. COPD exacerbation second to parainfluenza and possible pneumonia, present on admission, ongoing: -Patient positive for parainfluenza. -Patient received methylprednisolone 125 mg in the ED. -Prednisone 40mg PO daily -Continue Mucinex, Advair, Ipratropium, levalbuterol. -Acapella valve -On 1L NC and doing well; pt's anxiety playing a major role in her ability to breath (see below) -nursing to encourage patient to walk and sit in a chair Depression/anxiety -Continue home meds. -Prestiq and Ativan ordered Possible Community acquired pneumonia, present on admission, ongoing: -On admit patient had cough, had been febrile, with chest x-ray showing findings suspicious of early right upper lobe pneumonia. -Will continue Doxycycline for now; this is day 3 of expected 7 day course -Negative procal; repeat tomorrow -Strep ag negative; positive parainfluenza -If procal negative tomorrow will consider sending the patient home on doxy Prolonged qtc, present on admission, ongoing: -Qtc on admission 569. -Hold qtc prolonging meds. -Avoid levaquin Chest pressure, present on admission, ongoing: -Trend troponin. -Patient on telemetry. Hypothyroidism, present on admission, ongoing: -TSH 0.799 ft4 1.67 WNL -Continue home meds. Dispo: Likely discharge tomorrow pending improvement. Pt is not getting an NG tube despite multiple requests as this is not needed at this time. Pain Evaluation: Adequate Pain Control VTE Prophylaxis: Sub-Q Enoxaparin Resuscitation Status: DNR/DNI:Do Not Resuscitate/Intubate Attending Statement The patient was seen and examined together with Dr. Vickers on 04/26/17 and I have added additional information to the note above. Heron Vickers DO Apr 26, 2017 11:19 Ana Walters DO Apr 27, 2017 13:54
--- NOTE | 2017-04-26 12:37 | NUR ---
Jerry Pt asking to be discharged with jerry, states she is incontinent. Pt states she is unable to walk today as she is too weak and still having hard time breathing. SPO2 0.5 L NC 92%. paged. Care continues.
--- NOTE | 2017-04-26 13:06 | NUR ---
Up to chair Pt up to chair on 0.5 L NC, desatted to 82%, increased oxygen to 2 L, pt SPO2 increased to 87%. Once settled titrated O2 down to 0.5 L NC SPO2 92%. paged. Care continues.
[2017-04-26] MEDS ORDERED: hydrOXYzine Pamoate 25 mg Capsule PO ONE (18:05)
--- NOTE | 2017-04-26 18:28 | NUR ---
Right arm Pt stated right arm is bothering her, states she can't stop itching. States it feels strange. Right arm red, warm to touch, slight swelling. MD notified. MD assessed, ordered ultrasound and Vistaril for itching. Left voicemail with ultrasound at 1630. Care continues.
[2017-04-26] MEDS: LORazepam 0.5 mg Tablet PO PRN (20:07)
--- NOTE | 2017-04-26 21:50 | NUR ---
Right UE US Order clarified as routine with Dr Du. US to be completed in am. arm is no longer reddened, pt denies pain in arm as well.
[2017-04-27 02:37] LABS: BASOPHILS % (AUTO) 0.2 % (0-3); EOSINOPHILS % (AUTO) 0.1 % (0-5); MONOCYTES % (AUTO) 6.4 % (4-12); Mean Corpuscular Hemoglobin 28.7 pg (27.0-35.0); Mean Corpuscular Volume 89.6 fL (81-100); NEUTROPHILS % (AUTO) 80.5 % (40-74); Platelet Count 224 bil/L (150-400)
[2017-04-27 03:32] VITALS: BP 142/82; PULSE 80; RESP 20; O2SAT 96
[2017-04-27] MEDS: LORazepam 0.5 mg Tablet PO PRN (03:49)
[2017-04-27] MEDS: Levalbuterol 0.63 mg/3 mL Inhalation Solution NEB PRN (05:21)
[2017-04-27 05:22] VITALS: PULSE 82; RESP 18; O2SAT 97
[2017-04-27 09:05] VITALS: BP 138/83; PULSE 94; RESP 18; O2SAT 96
[2017-04-27] MEDS: predniSONE 20 mg Tablet PO SCH (09:09)
[2017-04-27] MEDS: Fluticasone-Salmererol 250-50 Inhaler INHALATION SCH (09:10)
[2017-04-27] MEDS: Ipratropium HFA 200 Puff 12.9 Gm Inhaler INHALATION SCH (09:10)
[2017-04-27] MEDS: Ipratropium 0.03% 30 mL Nasal Spray Bottle NASAL SCH (09:10)
[2017-04-27] MEDS: guaiFENesin 600 mg ER12 Tablet PO SCH (09:10)
--- NOTE | 2017-04-27 09:56 | NUR ---
Social Work: Readiness for Discharge D: Pt discussed in am rounds with MD team. Pt is medically stable for discharge however is not ambulating at her baseline. Pt will require skilled rehab. Order placed for MEDICAL FIELD REPRESENTATIVE to coordinate SNF placement. MEDICAL FIELD REPRESENTATIVE met with patient at bedside to discuss discharge planning. Pt is agreeable to skilled rehab. SNF CHOICE LIST PROVIDED. Preference is for [facility]. MEDICAL FIELD REPRESENTATIVE spoke with Heriberto at [facility] to provide referral. He is reviewing for admission. PPW on chart. PASSR to be signed by A: Pt who will require skilled rehab for continued strengthening and gait stability P: Anticipate pt to discharge to skilled rehab possibly today; [facility] is reviewing. BRYANT Barksdale Addendum: 04/27/17 at 1115 by BETSY CAMARA SS Pt has been accepted with Dr. Teran to follow. paged to notify of acceptance.
[2017-04-27 10:24] VITALS: PULSE 84
[2017-04-27] MEDS ORDERED: AZIT500T5 PO (11:29)
[2017-04-27] MEDS ORDERED: PRED-508 PO (11:29)
--- NOTE | 2017-04-27 11:34 | PCM.DIMED ---
Heron Vickers DO 04/27/17 1134: Discharge Instructions Date of Service Apr 27, 2017 Dates of Hospitalization Apr 23, 2017 at 14:53 Discharge Diagnosis Discharge Diagnosis COPD exacerbation Parainfluenza Depression/Anxiety Hypothyroidism QT prolongation Medication Instructions Additional med instructions Prednisone 40mg by mouth daily Doxycycline 100mg by mouth twice daily Diet Discharge Diet: Heart Healthy Activity Discharge Activity: Other (SNF physical therapy) Call your provider Call your provider for: Fever or Chills, Shortness of breath, Chest pain Patient Instructions Patient Instructions You were admitted for your COPD and possible pneumonia. You were doing well on the day of discharge with normal oxygen saturations without the help of oxygen. However, you continue to be weak and need additional oxygen when you are walking around. You will be discharge to [facility] for additional help recovering. We are sending your home with another 5 days of steroids and 5 days of Doxycycline. Please take only as directed. You will need to follow up with your primary doctor within 1 week. We discussed that this will likely take some time to recover and immediate improvement should not be expected. Follow-up Provider: Prasad Catherine MD Follow-up with PCP in: 1 week Ana Walters DO 04/27/17 1357: Discharge Instructions Attending's Statement The patient was seen and examined together with Dr. Vickers on 04/27/17 and I agree with the history, exam and plan as outlined in the note above. Heron Vickers DO Apr 27, 2017 11:34 Ana Walters DO Apr 27, 2017 13:57
[2017-04-27] MEDS ORDERED: DOXY100T2 PO ×2 (11:35→12:37)
[2017-04-27 11:38] VITALS: BP 121/76; PULSE 90; RESP 20; O2SAT 98
[2017-04-27 11:46] VITALS: PULSE 112
--- NOTE | 2017-04-27 11:54 | PCM.DC.MED ---
Discharge Summary Date of Service Apr 27, 2017 Dates of Hospitalization Date of Hospital Admission Apr 23, 2017 at 14:53 Date of Discharge: Apr 27, 2017 Providers: Admitting Physician: Devin Villanueva MD Primary Care Physician: Prasad Catherine MD Attending Physician: Devin Villanueva MD Diagnosis at Time of Discharge Diagnosis at Time of Discharge COPD exacerbation Parainfluenza Depression/Anxiety Hypothyroidism QT prolongation Procedures XRay, CTs & MRIs Chest x-ray 04/23/2017: IMPRESSION: Findings suspicious for early right upper lobe pneumonia. Dictated by: Roberto Lipscomb M.D. on 04/23/2017 at 12:16 Brief History This is a 76-year-old female with past medical history significant for COPD on continuous 1.5 L of oxygen per day who presented with shortness of breath secondary to COPD exacerbation, pneumonia, and parainfluenza virus. Hospital Course This is a 76-year-old female with past medical history significant for COPD sometimes on oxygen 1.5L at home who was admitted with COPD exacerbation and possible community acquired pneumonia. On admit she required high flow oxygen. She was subsequently found to have parainfluenza virus in addition to her pneumonia.. After 24 hours she was off the high flow. She continued to be anxious throughout her hospital stay but was back at baseline oxygen demands ( intermittent O2 by [place]). She was stable on day of discharge. She will be discharged to a usp facility where she will finish out her course of steroids for her COPD and doxycycline for the pneumonia. Patient while at rest should remain off of oxygen lungs her O2 sats remained above 90% or greater however while walking the patient should have at minimum 1.5-2 L of oxygen. For full hospital course see below: Acute hypoxic respiratory failure, multifactoral; present on admission; resolved -Pt presented with hypoxia and required high flow O2; pt on intermittent 1.5 L NC at home (baseline). -On discharge she was back to her baseline oxygen requirement which is intermittent O2 by [place]. COPD exacerbation second to parainfluenza and pneumonia, present on admission, ongoing: -Patient positive for parainfluenza. -She received Prednisone in hospital and will be discharged on 5 additional days of prednisone. -Continued Symbicort and Atrovent as outpatient. -She will continue on intermittent oxygen by [place]. Community acquired pneumonia, present on admission, ongoing: -On admit patient had cough, had been febrile, with chest x-ray showing findings suspicious of early right upper lobe pneumonia. -Positive parainfluenza. -Patient received doxycylcine in hospital and discharged without antibiotics. Prolonged qtc, present on admission, ongoing: -Qtc on admission 569. -qtc prolonging meds were held. Chest pressure, present on admission, ongoing: -Troponins were negative. -No EKG changes. Hypothyroidism, present on admission, ongoing: -TSH 0.799 ft4 1.67 WNL -Home meds continued on discharge. Depression/anxiety -Home meds continued on discharge. Exam Vital Signs (Last) Date Time Temp Pulse Resp B/P Pulse Ox O2 Delivery O2 Flow Rate FiO2 04/27/17 11:38 36.3 90 20 121/76 98 Nasal Cannula 0.50 04/24/17 08:30 21 Exam General: lying in bed anxious but answering questions appropriately. Cardiovascular: Regular rate and rhythm with no murmurs, rubs, or gallops appreciated Pulmonary: Mild wheezes present bilaterally. Abdomen: Bowel tones present. Soft, nontender, nondistended Extremities: No clubbing, cyanosis, edema, or lymphadenopathy appreciated. Psychiatric: Alert and oriented; anxious Test 04/23/17 12:30 04/23/17 14:24 04/23/17 14:55 04/23/17 17:40 Phosphorus Level 3.4mg/dL (2.5-4.9) Magnesium Level 1.9mg/dL (1.6-2.6) Pro-B-Type Natriuretic Peptide 425.2pg/mL (0-738) Thyroid Stimulating Hormone (TSH) 0.799uIU/mL (0.450-4.500) Free Thyroxine 1.67ng/dL (0.82-1.77) Urine Legionella pneumophilia Ag Negative (Negative) Lactic Acid Level 2.0mmol/L (0.4-2.0) Urine Color Straw (YELLOW) Urine Appearance Clear (CLEAR,HAZY) Urine pH 5.0 (5.0-8.0) Urine Specific [place] 1.005 (1.003-1.035) Urine Protein Negativemg/dL (NEG,TRACE) Urine Glucose (UA) Negativemg/dL (NEGATIVE) Urine Ketones Negativemg/dL (NEGATIVE) Urine Occult Blood Small (NEGATIVE) Urine Nitrite Negative (NEGATIVE) Urine Bilirubin Negative (NEGATIVE) Urine Urobilinogen Normalmg/dL (NORMAL) Urine Leukocyte Esterase Negative (NEGATIVE) Urine RBC 3-10/hpf (0-2) Urine WBC 0-5/hpf (0-5) Urine Epithelial Cells Occasional/hpf (NONE-MOD) Urine Crystals None seen (NONE SEEN) Urine Bacteria Few/hpf (NONE-FEW) Urine Hyaline Casts None/lpf (NONE) Urine Granular Casts None seen (NONE SEEN) Urine Waxy Casts None seen (NONE SEEN) Urine Red Blood Cell Casts None seen (NONE SEEN) Urine White Blood Cell Casts None seen (NONE SEEN) Urine Mucus None seen (None Seen) Urine Trichomonas None seen (NONE SEEN) Urine Yeast None (NONE SEEN) Urinalysis Comment None Urine Culture Reflexed Not indicated Test 04/24/17 02:20 04/27/17 02:19 Troponin T 0.010ug/L (0.0-0.011) White Blood Count 12.1th/mm3 (3.8-10.1) Red Blood Count 4.42mil/mm3 (3.90-5.20) Hemoglobin 12.7g/dL (12.0-15.6) Hematocrit 39.6% (35.0-46.0) Mean Corpuscular Volume 89.6fL (81-100) Mean Corpuscular Hemoglobin 28.7pg (27.0-35.0) Mean Corpuscular Hemoglobin Concent 32.1% (32.0-37.0) Red Cell Distribution Width 14.1% (12.3-15.4) Platelet Count 224bil/L (150-400) Neutrophils (%) (Auto) 80.5% (40-74) Lymphocytes (%) (Auto) 12.4% (14-46) Monocytes (%) (Auto) 6.4% (4-12) Eosinophils (%) (Auto) 0.1% (0-5) Basophils (%) (Auto) 0.2% (0-3) Sodium Level 139mEq/L (134-144) Potassium Level 4.2mEq/L (3.5-5.2) Chloride Level 102mEq/L (97-108) Carbon Dioxide Level 26mmol/L (18-29) Blood Urea Nitrogen 23mg/dL (8-27) Creatinine 0.52mg/dL (0.57-1.00) Estimat Glomerular Filtration Rate 165mL/min (>59) Glucose Level 144mg/dL (60-99) Calcium Level 9.2mg/dL (8.5-10.1) Total Bilirubin 0.2mg/dL (0.0-1.2) Aspartate Amino Transf (AST/SGOT) 23U/L (0-50) Alanine Aminotransferase (ALT/SGPT) 29U/L (0-32) Alkaline Phosphatase 66U/L (25-165) Total Protein 5.7g/dL (6.4-8.4) Albumin 3.3g/dL (3.4-5.0) Procalcitonin 0.06ng/mL (0.00-0.08) Discharge Medications Discharge Medications Budesonide/Formoterol 160-4.5 mcg Inh (Symbicort 160-4.5 mcg Inh) 120 Puff Inhaler 1 PUFF INHALATION BID (Reported) Cholecalciferol (Vitamin D3) (Vitamin D3) 2,000 Unit Capsule 2,000 UNIT PO NOON (Reported) Cyanocobalamin (Vitamin B12) 1,000 Mcg Tablet 1,000 MCG PO QAM (Reported) Desvenlafaxine Succinate ER (Pristiq ER) 50 Mg Tab.er.24h 50 MG PO Q48 (Reported ) AT NOON EVERY OTHER DAY Doxycycline Hyclate (Doxycycline Hyclate) 100 Mg Tablet 100 MG PO BID Prescribed by: WILMA OTERO DO Estradiol (Vagifem) 10 Mcg Tablet 10 MCG VG WEEKLY (Reported) Folic Acid (Folic Acid) 1 Mg Tablet 1 MG PO NOON (Reported) Glucosamine Sulfate 2Kcl (Glucosamine) 1,000 Mg Tablet 1,000 MG PO DAILY ( Reported) Ipratropium [place] (Atrovent HFA) 200 Puff/12.9 Gm Inhaler 2 PUFF INH TID ( Reported) Levothyroxine (Levothyroxine) 75 Mcg Tablet 75 MCG PO QAM (Reported) Magnesium Oxide (Magnesium) 400 Mg Tablet 400 MG PO DAILY (Reported) Memantine (Namenda) 10 Mg Tablet 10 MG PO QPM (Reported) Multivits-Min/Iron/FA/Lutein (Centrum Silver Women Tablet) 8 Mg Iron-400 Mcg- 300 Mcg Tablet 1 EACH PO DAILY (Reported) Prednisone (Deltasone) 20 Mg Tablet 40 MG PO DAILY Prescribed by: WILMA OTERO, DO As needed Acetaminophen (Acetaminophen) 500 Mg Tablet 500 MG PO Q6H PRN PRN For Pain ( Reported) Benzonatate (Benzonatate) 200 Mg Capsule 200 MG PO TID PRN PRN For Cough ( Reported) Carboxymethyl/Gly/Poly80/Pf (Refresh Optive Advanced Drops) 1 Each [place] 1 EACH OP PRN For Eye Irritation (Reported) Clobetasol Propionate (Clobetasol Propionate) 15 Gm Cream..g. 1 APPLIC TP 3XW PRN PRN For Itching (Reported) Destini Root (Destini Root) 550 Mg Capsule 550 MG PO DIRECTED PRN PRN For Dyspepsia or Heartburn (Reported) Ipratropium [place] (Ipratropium [place] 0.06% Nasal) 15 Ml [place] 1 SPRAY NS TID PRN PRN For Congestion (Reported) Nystatin (Nystatin) 100,000 Unit/1 Ml Oral.susp 100,000 UNIT PO QID PRN PRN thrush (Reported) Zolpidem (Ambien) 5 Mg Tab 5 MG PO HS PRN PRN For Insomnia (Reported) Additional med instructions Prednisone 40mg by mouth daily Followup Plan Discharge Diet: Heart Healthy Discharge Activity: Other (SNF physical therapy) Patient Instructions You were admitted for your COPD and possible pneumonia. You were doing well on the day of discharge with normal oxygen saturations without the help of oxygen. However, you continue to be weak and need additional oxygen when you are walking around. You will be discharge to [facility] for additional help recovering. We are sending your home with another 5 days of steroids. Please take only as directed. You will need to follow up with your primary doctor within 1 week. We discussed that this will likely take some time to recover and immediate improvement should not be expected. Follow-up Provider: Prasad Catherine MD Follow-up with PCP in: 1 week Time spent Greater than 35 minutes Attending Statement The patient was seen and examined together with Dr. Real on 04/27/17 and I have added additional information to the note above. copies to: Rocio Teran MD, Christopher DO Apr 27, 2017 11:54 Ana Walters DO Apr 27, 2017 15:11
--- NOTE | 2017-04-27 11:57 | NUR ---
Spoke with Heriberto Archer at [facility] and requested transport for 1400, this time has been confirmed. Faxed orders to [facility] and placed copy in chart. Updated OPHTHALMOLOGIST RETINA SPECIALIST and RN
--- NOTE | 2017-04-27 12:42 | DRSVH ---
PROCEDURE: US VENOUS ARM DUPLEX UNILATERAL, RIGHT INDICATIONS: R arm swelling r/o DVT TECHNIQUE: Real-time imaging, as well as color and pulse Doppler interrogation, was performed of the right upper extremity deep veins from the inferior neck to the antecubital fossa. COMPARISON: None. FINDINGS: The internal jugular vein, visualized portions of the subclavian vein, axillary, and brach ial veins are free of intraluminal thrombus. Where physically possible, the veins are normally compr essible. Color and pulse Doppler demonstrate normal intraluminal flow, with expected phasicity and p ulsatility. Additional scanning of the cephalic and basilic veins of the superficial system demonstr ate normal compressibility, without thrombus. IMPRESSION: No DVT right upper extremity. Dictated by: Carlos Malone M.D. on 04/27/2017 at 12:40 Approved by: Carlos Malone M.D. on 04/27/2017 at 12:40
--- NOTE | 2017-04-27 14:38 | NUR ---
Discharge Pt discharged at 1435. She left with [employer] transportation via wheelchair. She left in possession of all of her belongings. She left on 2L oxygen via nasal cannula. Home medications (2) were sent with her. She was given discharge instructions. Report was called and given to Ale KOCH at [facility]. Addendum: 04/27/17 at 1440 by YOU MONTILLA RN Estrada catheter was discontinued prior to discharge. PIV was removed with catheter intact.
== END 2017-04-27 14:35 | DRG 193 ==
LOC: EDBD 12:10 → SED 12:10 → PCC 14:53
PROVIDERS: ADMIT Internal Medicine; ATTEND Internal Medicine
PROC: 4A033R1 Measurement of Arterial Saturation, Peripheral, Percutaneous Approach (ICD-10-PCS; principal; 2017-04-23)
DX: J10.01 Influenza due to other identified influenza virus with the same other identified influenza virus pneumonia (principal); J96.21 Acute and chronic respiratory failure with hypoxia; J44.1 Chronic obstructive pulmonary disease with (acute) exacerbation; Z99.81 Dependence on supplemental oxygen; Z87.891 Personal history of nicotine dependence; Z79.52 Long term (current) use of systemic steroids; I45.81 Long QT syndrome; E03.9 Hypothyroidism, unspecified; F32.9 Major depressive disorder, single episode, unspecified; F41.9 Anxiety disorder, unspecified; B34.8 Other viral infections of unspecified site